=== PATIENT | male | born 1945 | race Caucasian/White ===

== ENCOUNTER 2016-07-29 13:02 | Inpatient (IN) | payer BC, OTHER ==
[~2016-07-29] VITALS: Ht 180.3 cm; Wt 92.8 kg
[2016-07-29] MEDS ORDERED: RANI150T3 PO (13:24)
--- NOTE | 2016-07-29 14:07 | DIAGNOSTIC IMAGING REPORT ---
RIGHT RIBS UNILATERAL WITH PA CHEST CLINICAL HISTORY: Right rib pain following fall. COMPARISON STUDY: Chest radiograph August 15, 2012. FINDINGS: There is a moderate-sized right pneumothorax with superior pleural separation of 5.2 cm. There are acute nondisplaced fractures of the lateral right sixth through ninth ribs. Linear right lower lung opacity favors atelectasis. Cardiomediastinal silhouette is stable. There is no evidence of pulmonary edema. IMPRESSION: 1. Moderate right pneumothorax. Findings discussed with Bianka Newsome at time of dictation. 2. Acute nondisplaced fractures of the right sixth through ninth ribs. Electronically signed by: Lewis Guillen M.D. 07/29/2016 2:05 PM Dictated Date/Time: 07/29/2016 1:59 PM
--- NOTE | 2016-07-29 14:27 | EMERGENCY ROOM VISIT NOTE ---
ED Visit Note First contact with patient: 13:17 CHIEF COMPLAINT: Right rib injury this morning HISTORY OF PRESENT ILLNESS: Patient is an otherwise healthy 71-year-old white male who presents emergency Department complaining of eye his for evaluation of right-sided rib pain after a fall that occurred roughly 5 hours ago. He slipped on ice and fell, landing on his right side with his right arm underneath him. He felt pain immediately in the right ribs laterally, wrapping around to the back slightly. He states that he is having a hard time breathing. He has rib pain with any attempts at movement including position changes or twisting. He has pain with trying to take a deep breath or cough. He denies hemoptysis. He did not strike his head or lose consciousness. He denies any other injuries. No anterior chest pain or abdominal pain. No back or neck pain. He took Aleve earlier this morning. He rates his pain a 5/10. REVIEW OF SYSTEMS: Review of systems as per HPI. All other systems reviewed were negative. 10 systems reviewed. PMH: Electronic medical records are reviewed and summarized as above/below. See Problem List. SOCIAL HISTORY: Patient lives at home with his . Retired. Nonsmoker.. PHYSICAL EXAM: Vital Signs: Reviewed Nurse's notes. GENERAL: Patient is an uncomfortable appearing 71-year-old white male who is awake and alert and sitting upright on the gurney in mild distress due to his right rib pain. Neck: The neck is supple and there is no pain to palpation over the posterior cervical spine and no obvious step-offs or deformities. There is no JVD or tracheal deviation. Chest: There are no signs of deformities, contusions or abrasions to the anterior chest wall. There is no obvious crepitus or paradoxical chest rise. He has discomfort to palpation in the mid right ribs laterally. No obvious flail segment or fracture crepitus. Skin is intact without ecchymosis or abrasions. Heart: Regular rate, and regular rhythm. There is a normal S1 and S2 with no murmurs, clicks, or gallops appreciated. Lungs: Breath sounds equal and clear to auscultation without wheezes, rales, or rhonchi heard. Abdomen: Soft, completely nontender, nondistended, with good bowel sounds. There is no sign of trauma such as contusions, abrasions or penetrations. There are no palpable pulsatile masses or hepatosplenomegaly. There is no guarding, rigidity, or rebound noted. Back: The entire thoracic, lumbar, and sacral spine were palpated. No discomfort over the thoracic spine and lumbar spine. There are no obvious step- offs or deformities noted. There are no obvious signs of trauma such as contusions abrasions penetrations noted to the back. EMERGENCY DEPARTMENT COURSE: The patient was seen and evaluated as above. He declined medication for discomfort. X-rays of the ribs with PA chest were obtained. Findings were telephoned directly to me in the emergency department by Dr. Guillen, the interpreting radiologist due to the acute findings. Patient had a moderate right-sided pneumothorax with pleural separation measuring 5.2 cm. They were acute nondisplaced fractures of the right sixth through ninth ribs. X-ray findings were immediately reviewed with Dr. Durham. Patient was moved from room D4 to A1. Thoracic surgery (Dr. Harman and John Cosme, FISH) was consulted for chest tube placement and will manage the patient in the hospital. Please refer to their admission H&P and orders for further information. The patient otherwise remained hemodynamically stable while in the emergency department with chest tube placement. He was comfortable and declined any medication. RIGHT RIBS UNILATERAL WITH PA CHEST CLINICAL HISTORY: Right rib pain following fall. COMPARISON STUDY: Chest radiograph August 15, 2012. FINDINGS: There is a moderate-sized right pneumothorax with superior pleural separation of 5.2 cm. There are acute nondisplaced fractures of the lateral right sixth through ninth ribs. Linear right lower lung opacity favors atelectasis. Cardiomediastinal silhouette is stable. There is no evidence of pulmonary edema. IMPRESSION: 1. Moderate right pneumothorax. Findings discussed with Bianka Newsome at time of dictation. 2. Acute nondisplaced fractures of the right sixth through ninth ribs. Differential diagnoses entertained include rib fracture, rib contusion, pneumothorax, pulmonary contusion, retroperitoneal injury, hepatic trauma, among others. Problem List Medical Problems: (1) Esophageal Reflux Status: Chronic Surgical Problems: (1) History of herniorrhaphy Status: Resolved (2) History of shoulder surgery Status: Resolved Current/Historical Medications Scheduled PRN Ranitidine Hcl (Zantac), 150 MG PO DAILY PRN for acid reflux Allergies Coded Allergies: No Known Allergies (Verified , 3/17/17) Vital Signs Date Time Temp Pulse Resp B/P Pulse Ox O2 Delivery O2 Flow Rate FiO2 07/29/16 15:52 78 22 160/98 97 Nasal Cannula 2.0 07/29/16 15:48 94 Nasal Cannula 2.0 07/29/16 15:12 66 16 168/96 96 07/29/16 14:31 66 07/29/16 14:23 67 18 173/99 96 Room Air 07/29/16 13:10 36.5 69 18 138/81 96 Room Air Laboratory Results 07/29/16 14:25 Red Blood Count 4.84, Mean Corpuscular Volume 84.3, Mean Corpuscular Hemoglobin 29.1, Mean Corpuscular Hemoglobin Concent 34.6, Mean Platelet Volume 9.5, Neutrophils (%) (Auto) 87.8, Lymphocytes (%) (Auto) 5.9, Monocytes (%) (Auto) 5.5, Eosinophils (%) (Auto) 0.3, Basophils (%) (Auto) 0.1, Neutrophils # (Auto) 10.78, Lymphocytes # (Auto) 0.73, Monocytes # (Auto) 0.68, Eosinophils # (Auto) 0.04, Basophils # (Auto) 0.01 07/29/16 14:25 Test 07/29/16 14:25 07/29/16 14:37 White Blood Count 12.29 K/uL (4.8-10.8) Red Blood Count 4.84 M/uL (4.7-6.1) Hemoglobin 14.1 g/dL (14.0-18.0) Hematocrit 40.8 % (42-52) Mean Corpuscular Volume 84.3 fL (80-100) Mean Corpuscular Hemoglobin 29.1 pg (25-34) Mean Corpuscular Hemoglobin Concent 34.6 g/dl (32-36) Platelet Count 181 K/uL (130-400) Mean Platelet Volume 9.5 fL (7.4-10.4) Neutrophils (%) (Auto) 87.8 % Lymphocytes (%) (Auto) 5.9 % Monocytes (%) (Auto) 5.5 % Eosinophils (%) (Auto) 0.3 % Basophils (%) (Auto) 0.1 % Neutrophils # (Auto) 10.78 K/uL (1.4-6.5) Lymphocytes # (Auto) 0.73 K/uL (1.2-3.4) Monocytes # (Auto) 0.68 K/uL (0.11-0.59) Eosinophils # (Auto) 0.04 K/uL (0-0.5) Basophils # (Auto) 0.01 K/uL (0-0.2) RDW Standard Deviation 40.8 fL (36.4-46.3) RDW Coefficient of Variation 13.5 % (11.5-14.5) Immature Granulocyte % (Auto) 0.4 % Immature Granulocyte # (Auto) 0.05 K/uL (0.00-0.02) Prothrombin Time 10.6 SECONDS (9.0-12.0) Prothromb Time International Ratio 1.0 (0.9-1.1) Activated Partial Thromboplast Time 23.8 SECONDS (21.0-31.0) Partial Thromboplastin Ratio 0.9 Est Creatinine Clear Calc Drug Dose 64.8 ml/min Estimated GFR () 69.6 Estimated GFR (Non- 60.1 BUN/Creatinine Ratio 19.0 (10-20) Calcium Level 9.3 mg/dl (8.5-10.1) Total Bilirubin 0.8 mg/dl (0.2-1) Aspartate Amino Transf (AST/SGOT) 27 U/L (15-37) Alanine Aminotransferase (ALT/SGPT) 39 U/L (12-78) Alkaline Phosphatase 79 U/L (45-117) Total Protein 7.0 gm/dl (6.4-8.2) Albumin 3.9 gm/dl (3.4-5.0) Globulin 3.1 gm/dl (2.5-4.0) Albumin/Globulin Ratio 1.3 (0.9-2) Bedside Hemoglobin 13.9 g/dl (14.0-18.0) Bedside Hematocrit 41 % (42-52) Bedside Sodium 140 mEq/L (135-144) Bedside Potassium 4.0 mEq/L (3.3-5.0) Bedside Chloride 103 mEq/L (101-112) Bedside Total CO2 24 mEq/l (24-31) Anion Gap 17.0 mmol/L (16-25) Bedside Blood Urea Nitrogen 25 mg/dl (7-18) Bedside Creatinine 1.1 mg/dl (0.6-1.3) Bedside Glucose (other) 133 mg/dl (70-99) Bedside Ionized Calcium (Lupe) 1.20 mmol/l (1.12-1.32) Departure Information Impression Primary Impression: Pneumothorax, right Additional Impression: Multiple fractures of ribs of right side Dispostion Being Evaluated By Surgeon Referrals Antonio Charles M.D. (PCP) Patient Instructions [facility] Problem Qualifiers
[2016-07-29 14:50] LABS: BASO % 0.1 %; BASO ABS # 0.01 K/uL (0-0.2); COMPLETE YES; EOS % 0.3 %; HEMATOCRIT 40.8 % (42-52); IG% 0.4 %; LYMPH % 5.9 %; LYMPH ABS # 0.73 K/uL (1.2-3.4); MEAN CELL VOLUME 84.3 fL (80-100); MEAN CORPUSCULAR HEMOGLOBIN 29.1 pg (25-34); MEAN CORPUSCULAR HGB CONC 34.6 g/dl (32-36); MEAN PLATELET VOLUME 9.5 fL (7.4-10.4); MONO % 5.5 %; NEUT % 87.8 %; PLATELET COUNT 181 K/uL (130-400); RED BLOOD COUNT 4.84 M/uL (4.7-6.1); WHITE BLOOD COUNT 12.29 K/uL (4.8-10.8)
[2016-07-29 14:50] LABS: ISTAT CREATININE 1.1 mg/dl (0.6-1.3); ISTAT HEMOGLOBIN 13.9 g/dl (14.0-18.0); ISTAT IONIZED CALCIUM 1.2 mmol/l (1.12-1.32)
[2016-07-29 14:54] LABS: CALCIUM 9.3 mg/dl (8.5-10.1); CREATININE 1.2 mg/dl (0.60-1.40); PARTIAL THROMBOPLASTIN RATIO 0.9; PROTHROMBIN TIME (PATIENT) 10.6 SECONDS (9.0-12.0)
[2016-07-29 14:57] LABS: ALB/GLOB RATIO 1.3 (0.9-2)
--- NOTE | 2016-07-29 15:14 | History and Physical ---
History & Physical Date of Service Jul 29, 2016. History & Physical H & P Dictated #[id number]
[2016-07-29] MEDS ORDERED: SOD PHOSPHATE/SOD BIPHOSPHATE ENEMA 132 ML BTL PR PRN (15:15)
[2016-07-29] MEDS ORDERED: MoRPHine SULFATE 2 MG/ML CARP IV PRN (15:15)
[2016-07-29] MEDS ORDERED: POLYETHYLENE (MIRALAX) 17 GM PACK PO PRN (15:15)
[2016-07-29] MEDS ORDERED: ONDANSETRON INJ 2 MG/ML 2 ML VIAL IV PRN (15:15)
[2016-07-29] MEDS ORDERED: BISACODYL 10 MG SUPP PR PRN (15:15)
[2016-07-29] MEDS ORDERED: OXYCODONE HCL IR 5 MG TAB (IMMEDIATE RELEASE) PO PRN (15:15)
--- NOTE | 2016-07-29 15:31 | HISTORY & PHYSICAL EXAMINATION ---
DATE OF ADMISSION: 07/29/2016 CHIEF COMPLAINT: Right-sided rib pain. HISTORY OF PRESENT ILLNESS: This is a very healthy 71-year-old male with no significant past medical history. The patient says that he was walking down his driveway on a flat surface when he nearly fell on the ice and slipped. He landed on his right side and since that time, he has had some right-sided rib pain in the posterior lateral region. He also notes some pain with deep inspirations. The patient specifically notes that he merely slipped on the ice. He did not have any lightheadedness, chest pain or shortness of breath precipitating his fall. He did not hit his head and he denies any loss of consciousness. I questioned the patient on a litany of other symptoms and he did fall, which was mechanical in nature. There are no head injuries or loss of consciousness. He denies any blurred vision. He denies any tinnitus. He denies any epistaxis. He denies any sore throat or neck pain. He denies chest pain, shortness of breath or palpitations. He does note some pain with deep inspirations, however. He denies any abdominal pain, nausea, vomiting, diarrhea or dysuria. He denies any recent weight loss. He denies any fevers, shakes or chills. He denies any change in bowel or bladder habits. He denies history of stroke, seizure, migraine headache, anxiety or depression. I also questioned the patient on his activities of daily living and he says that he can walk up at least 4 flights of steps without chest pain or shortness of breath. In the Emergency Department, the patient did have rib x-rays as well as a chest x-ray, which showed that the patient had a moderate-sized right-sided pneumothorax. He had some nondisplaced rib fractures of the right ribs #6 through #9. We have now been asked to participate in the patient's care due to his pneumothorax. PAST MEDICAL HISTORY: GERD. PAST SURGICAL HISTORY: Includes bilateral shoulder surgeries, he has had 3 surgeries on each shoulder. ALLERGIES: None. OUTPATIENT MEDICATIONS: Include 1 Zantac daily. SOCIAL HISTORY: He is a lifetime nonsmoker. FAMILY HISTORY: There is no family history of cancer. REVIEW OF SYSTEMS: As noted above. PHYSICAL EXAMINATION: VITAL SIGNS: The patient is afebrile, temperature 36.5, pulse 66 and regular, respirations are 18 and unlabored, blood pressure 173/99, and pulse ox 96% on room air. SKIN: Warm with good turgor. GENERAL: He is alert. He is oriented x3. He is in no distress. HEENT: Head is atraumatic and normocephalic. EYES: Pupils equal, round and reactive to light and accommodation. Extraocular motions are intact. EARS: Auditory acuity is grossly intact. NOSE: Nasal patency was intact. Sinuses are nontender. There is no evidence of Coyle's sign or raccoon eyes. NECK: Supple without tracheal shift or stridor. He had no tenderness to palpation of his cervical spine. CARDIOVASCULAR: Regular rate and rhythm. LUNGS: Revealed decreased breath sounds on the right side. His chest wall was palpated and he did not have any pain on the left side, but he did have pain over the right posterior lateral chest wall consistent with his existing rib fractures. ABDOMEN: Soft, nontender, and nondistended. There is no pain with palpation. EXTREMITIES: Revealed no cyanosis, clubbing, or edema. PELVIS: Noted to be grossly stable by exam and he did not have any pain with palpation of his hips. Radial and DP pulses were palpable bilaterally. NEUROLOGIC: Revealed cranial nerves II through XII are grossly intact. There is no evidence of focal deficits. He can move all 4 extremities and follow simple commands. DIAGNOSTIC DATA: As noted above. IMPRESSION: A 71-year-old male with rib fractures and pneumothorax. PLAN: The patient's injuries noted above are merely secondary to a mechanical fall. Concerning the patient's pneumothorax, I feel that this is likely secondary to his rib fractures and his fall. We will get a repeat CXR to determine if a chest tube is needed. Concerning the patient's rib fractures, analgesics will be prescribed along with incentive spirometry. The patient will be encouraged to ambulate. I did inform him that limited mobility and limited breathing will predispose him to pneumonia and he expressed understanding of this as well. We will initiate anticoagulation with Lovenox tomorrow morning. The patient will be a level 1 full code. MTDD
--- NOTE | 2016-07-29 16:02 | DIAGNOSTIC IMAGING REPORT ---
SINGLE VIEW CHEST CLINICAL HISTORY: Pneumothorax. FINDINGS: An AP, portable, upright chest radiograph is compared to study dated performed the same day 07/29/2016 and study dated 08/15/2012. The examination is degraded by portable technique and patient rotation. The heart is enlarged and there is atherosclerotic calcification of the thoracic aorta. The pulmonary vasculature is noncongested. The trachea is midline. There is increasing right infrahilar airspace opacification. No large pleural effusion is identified. A moderate right apical pneumothorax has not significant change from previous. There is approximately 4.5 cm apical pleural separation no left-sided pneumothorax is seen. The skeletal structures are osteopenic. Right-sided rib fractures are again noted. Minimal subcutaneous emphysema is noted along the right lateral chest wall. IMPRESSION: 1. No significant change in a moderate right apical pneumothorax as compared to today's earlier examination. Any differences in measured size are likely technical. 2. Increasing right infrahilar airspace opacities. This could present atelectasis or possibly an aspiration event. Clinical correlation will be required. 3. Cardiac enlargement without radiographic evidence of congestive failure. 4. No large pleural effusion is seen. 5. Right-sided rib fractures are noted. Electronically signed by: Elijah Avila M.D. 07/29/2016 4:00 PM Dictated Date/Time: 07/29/2016 3:58 PM
--- NOTE | 2016-07-29 16:51 | HISTORY & PHYSICAL EXAMINATION ---
DATE OF ADMISSION: 07/29/2016 HISTORY OF PRESENT ILLNESS: Mr. Felder was seen here in the Emergency Room about 3:30 p.m. He had fallen about 9:00 this morning on the ice and hit his right chest. 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 He had a significant pneumothorax. Really not short of breath and oxygenating well on room air. He had no other injuries and is actually very healthy except for some gastroesophageal reflux disease. He is a nonsmoker. Upon evaluating the patient, he is quite comfortable. We repeated his chest x-ray 2 hours after his initial x-ray, pneumothorax actually seemed a bit smaller. We are going to put him on oxygen and admit him and repeat a chest x-ray at 9:00 tonight. We will also repeat one in the morning. Should this enlarge we will of course put a chest tube in, however, my feeling is this will probably resolve with conservative management. I had a long talk with the patient and his . He is stable.
[2016-07-29 17:00] VITALS: BP 168/91; PULSE 64; TEMP 36.7; O2SAT 99; Ht 180.3 cm; Wt 92.8 kg
[2016-07-29 17:30] VITALS: BP 124/80
[2016-07-29] MEDS: ACETAMINOPHEN 325 MG TAB PO SCH (18:52)
[2016-07-29] MEDS: KETOROLAC TROMETHAMINE 15 MG/ML VIAL IV. SCH (18:53)
[2016-07-29] MEDS: DOCUSATE SODIUM 100 MG CAP PO SCH (20:23)
--- NOTE | 2016-07-29 21:12 | DIAGNOSTIC IMAGING REPORT ---
CHEST ONE VIEW PORTABLE CLINICAL HISTORY: pneumothorax dyspnea COMPARISON STUDY: 07/29/2006 at 4:04 PM FINDINGS: Increased volume of a right sided pneumothorax. Maximum apical pleural separation is 5.5 cm. Maximum basilar pleural separation is 2.8 cm. Persistent atelectatic change medial right base. IMPRESSION: Moderate increase in volume of a right-sided pneumothorax estimated currently at 50% of hemithoracic volume Electronically signed by: Surendra Lerma M.D. 07/29/2016 9:11 PM Dictated Date/Time: 07/29/2016 9:10 PM
[2016-07-29 23:08] VITALS: BP 158/94; PULSE 67; TEMP 36.9; O2SAT 96
[2016-07-30] MEDS: ACETAMINOPHEN 325 MG TAB PO SCH ×5 (00:34→23:31)
[2016-07-30 03:10] VITALS: BP 150/95; PULSE 75
[2016-07-30] MEDS: KETOROLAC TROMETHAMINE 15 MG/ML VIAL IV. SCH ×3 (03:12→17:49)
[2016-07-30 07:07] VITALS: BP 132/77; PULSE 67; TEMP 36.6; O2SAT 94
--- NOTE | 2016-07-30 07:17 | DIAGNOSTIC IMAGING REPORT ---
CHEST ONE VIEW PORTABLE CLINICAL HISTORY: pneumothorax COMPARISON STUDY: 07/29/2016 FINDINGS: Right-sided pneumothorax is again noted. It is perhaps slightly diminished in size. It remains approximately 50% of volume of the right hemithorax. IMPRESSION: Minimal decrease in volume of a right-sided pneumothorax. Nevertheless, it remains significant at approximately 50% of right hemithoracic volume Electronically signed by: Surendra Lerma M.D. 07/30/2016 7:15 AM Dictated Date/Time: 07/30/2016 7:14 AM
[2016-07-30] MEDS: DOCUSATE SODIUM 100 MG CAP PO SCH ×2 (08:47→21:52)
[2016-07-30] MEDS: ENOXAPARIN 40 MG/0.4 ML SYR SQ SCH (08:48)
--- NOTE | 2016-07-30 09:31 | DIAGNOSTIC IMAGING REPORT ---
CHEST ONE VIEW PORTABLE CLINICAL HISTORY: s/p R pleural catheter tube position COMPARISON STUDY: Prior examination same date FINDINGS: Interval placement of a right basilar chest tube. Near complete and/or complete reinflation right lung. IMPRESSION: Complete or near complete reinflation right lung. Interval placement of a right sided small caliber chest tube. Electronically signed by: Surendra Lerma M.D. 07/30/2016 9:30 AM Dictated Date/Time: 07/30/2016 9:29 AM
--- NOTE | 2016-07-30 09:38 | SURGERY PROGRESS NOTE ---
DATE: 07/30/2016 DATE: 07/30/2016. PROCEDURE: Insertion of right pleural catheter for expanding pneumothorax. SURGEON: Dr. Da Silva. ANESTHESIA: Local. SPECIFICS OF THE PROCEDURE: Mr. Felder is a 71-year-old really healthy male who presents after a fall and some nondisplaced rib fractures resulting in pneumothorax on the right. It appeared to be fairly small several hours after surgery and I elected to watch him on oxygen therapy and overnight. Repeated an x-ray this morning and the pneumothorax has gotten larger, now over 50%. He really has no symptoms except for some mild discomfort in her right chest. I am going to insert a pleural catheter today after a long discussion. I explained we could put a traditional large bore chest tube, but I think this will help him. We will place his chest tube and this pleural catheter and check a chest x-ray.
--- NOTE | 2016-07-30 09:41 | OPERATIVE REPORT ---
DATE OF OPERATION: 07/30/2016 PROCEDURE: Insertion of right pleural catheter. SURGEON: Dr. Da Silav. SPECIFICS OF PROCEDURE: This 16 Pashto catheter was placed in the right chest after a long discussion. I did it anteriorly. After appropriate consent had been signed and timeout had been taken I prepped and draped his anterior chest was anesthetized him with 25 gauge needle 1% Xylocaine. The larger needle with the Pneumocath in place was then placed through a small stab wound I had made with an 11 blade. I went above the rib and when I got air back I slid the catheter into place. I then removed the inner needle and attached it to a Heimlich valve. We had a sizeable leak initially when he coughed. I sutured in place with 2-0 silk suture. He tolerated it well and actually felt a bit better afterwards. A chest x-ray is pending at this time. I attest to the content of the Intraoperative Record and any orders documented therein. Any exceptio ns are noted below.
[2016-07-30 10:32] VITALS: O2SAT 95
[2016-07-30] MEDS ORDERED: NURSING VERBAL MED ORDER ONE (12:45)
[2016-07-30] MEDS ORDERED: RANITIDINE HCL 150 MG TAB PO PRN (13:00)
[2016-07-30 15:45] VITALS: BP 172/95; PULSE 72; TEMP 36.8; O2SAT 94
[2016-07-30 16:54] VITALS: BP 151/90; PULSE 64
[2016-07-30 22:54] VITALS: BP 156/90; PULSE 67; TEMP 36.9; O2SAT 96
[2016-07-31] MEDS: KETOROLAC TROMETHAMINE 15 MG/ML VIAL IV. SCH ×2 (02:37→09:59)
[2016-07-31] MEDS: ACETAMINOPHEN 325 MG TAB PO SCH (05:32)
[2016-07-31 05:40] VITALS: O2SAT 95
--- NOTE | 2016-07-31 07:02 | DIAGNOSTIC IMAGING REPORT ---
CHEST ONE VIEW PORTABLE CLINICAL HISTORY: f/u pneumothorax pneumothorax COMPARISON STUDY: 07/30/2016 FINDINGS: No significant residual pneumothorax. Small caliber right-sided chest tube seen in a peripheral location of the upper lung. Left lung is clear. IMPRESSION: No significant residual pneumothorax. Small caliber right chest tube is noted Electronically signed by: Surendra Lerma M.D. 07/31/2016 7:01 AM Dictated Date/Time: 07/31/2016 7:00 AM
[2016-07-31 07:24] VITALS: BP 153/95; PULSE 62; TEMP 36.6; O2SAT 95
[2016-07-31] MEDS: DOCUSATE SODIUM 100 MG CAP PO SCH (08:27)
[2016-07-31] MEDS: ENOXAPARIN 40 MG/0.4 ML SYR SQ SCH (08:28)
[2016-07-31 11:02] VITALS: BP 153/95; PULSE 62; TEMP 36.6; O2SAT 95
--- NOTE | 2016-07-31 11:03 | Discharge Instructions ---
Discharge Instructions Date of Service Jul 31, 2016. Admission Reason for Admission: Pneumothorax Discharge Discharge Diagnosis / Problem: Pneumothorax Discharge Goals Goal(s): Improve function (walk and breathe deeply.) Activity Recommendations Activity Limitations: resume your previous activity . Current Hospital Diet Patient's current hospital diet: Regular Diet Discharge Diet Recommended Diet: Regular Diet Pending Studies Studies pending at discharge: no Medical Emergencies . Who to Call and When: Medical Emergencies: If at any time you feel your situation is an emergency, please call 911 immediately. . Non-Emergent Contact Non-Emergency issues call your: Primary Care Provider . . "Provider Documentation" section prepared by Konrad Da Silva. VTE Core Measure Inpt VTE Proph given/why not?: Enoxaparin (Lovenox)SQ
--- NOTE | 2016-07-31 11:04 | DIAGNOSTIC IMAGING REPORT ---
CHEST ONE VIEW PORTABLE CLINICAL HISTORY: s/p chest tube removal COMPARISON STUDY: 07/30/2016 6:50 AM FINDINGS: No evidence pneumothorax status post right-sided chest tube removal. Minimal bibasilar atelectasis. IMPRESSION: No evidence pneumothorax status post chest tube removal Electronically signed by: Surendra Lerma M.D. 07/31/2016 11:03 AM Dictated Date/Time: 07/31/2016 11:03 AM
--- NOTE | 2016-07-31 13:00 | DISCHARGE SUMMARY ---
DISCHARGE DIAGNOSES: 1. Blunt right chest trauma with pneumothorax and rib fractures. 2. Gastroesophageal reflux disease. 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 He fell on the ice on 07/29/2016 in the morning and suffered some nondisplaced rib fractures, was found to have a pneumothorax. I saw him in the Emergency Room on 07/29/2016 and admitted him on oxygen as it appeared to me the pneumothorax was not going to be large enough to require a chest tube. On the morning of 07/30/2016, it could be seen that the pneumothorax was much larger. For this reason, I placed a small 16-Czech pneumo cath into the right anterior chest about the fourth interspace. He had significant air leak initially but then it stopped. I attached a Heimlich valve to it. He had no pneumothorax on his first chest x-ray after the tube had been placed. The following morning, today on 07/31/2016 his x-ray showed no evidence of pneumothorax and he had no air leak. I removed his chest tube at the bedside and then placed an occlusive dressing with an antimicrobial covering. His chest x-ray after pulling the tube showed no evidence of pneumothorax. The patient was discharged home. I gave him my cell phone number and told to call me should any problems arise, but I do not think they will. I will see him later on this week with a chest x-ray.
== END 2016-07-31 11:19 | disposition home or self-care (01) | DRG 200 ==
LOC: ENRESERVDT → ENRESERVTM → C.EDB 13:03 → C.MSW 15:56
PROVIDERS: ADMIT Surgery; ATTEND Surgery
PROC: 0W9930Z Drainage of Right Pleural Cavity with Drainage Device, Percutaneous Approach (ICD-10-PCS; principal; 2016-07-30)
DX: S27.0XXA Traumatic pneumothorax, initial encounter (principal); S22.41XA Multiple fractures of ribs, right side, initial encounter for closed fracture; W00.0XXA Fall on same level due to ice and snow, initial encounter; Y92.093 Driveway of other non-institutional residence as the place of occurrence of the external cause; K21.9 Gastro-esophageal reflux disease without esophagitis; Z79.899 Other long term (current) drug therapy

== ENCOUNTER → 2016-08-05 | Outpatient (CLI) | payer BC ==
[~2016-08-05] MED LIST: RANI150T3 PO
--- NOTE | 2016-08-05 10:19 | DIAGNOSTIC IMAGING REPORT ---
CHEST 2 VIEWS ROUTINE CLINICAL HISTORY: Rib fracture pneumothorax. Follow-up examination. COMPARISON STUDY: 07/31/2016 FINDINGS: The cardiac and mediastinal contours are normal. There is no evidence of focal pulmonary consolidation. There is no evidence of failure. No pleural effusions are visualized.[ Degenerative changes are present within the shoulders. No pneumothorax is visualized. There is trace subcutaneous emphysema on the right. There is a right eighth rib fracture. IMPRESSION: 1. Decreasing subcutaneous emphysema in the right 2. Right eighth rib fracture 3. No evidence of pneumothorax Electronically signed by: Nicola Salas M.D. 08/05/2016 10:17 AM Dictated Date/Time: 08/05/2016 10:16 AM
== END | disposition home or self-care (01) ==
LOC: C.RAD1850 10:04
PROVIDERS: ATTEND Surgery
DX: J93.9 Pneumothorax, unspecified (principal); S22.31XA Fracture of one rib, right side, initial encounter for closed fracture; X58.XXXA Exposure to other specified factors, initial encounter

== ENCOUNTER → 2017-01-19 | Outpatient (CLI) | payer BC ==
[2017-01-19 12:15] LABS: BASO % 0.6 %; BASO ABS # 0.03 K/uL (0-0.2); COMPLETE YES; EOS % 6.3 %; IG% 0.2 %; LYMPH % 25.5 %; LYMPH ABS # 1.18 K/uL (1.2-3.4); MEAN CELL VOLUME 87.4 fL (80-100); MEAN CORPUSCULAR HEMOGLOBIN 29.7 pg (25-34); MEAN PLATELET VOLUME 9.6 fL (7.4-10.4); MONO % 10.2 %; NEUT % 57.2 %; PLATELET COUNT 214 K/uL (130-400); RED BLOOD COUNT 4.92 M/uL (4.7-6.1); WHITE BLOOD COUNT 4.62 K/uL (4.8-10.8)
[2017-01-19 12:22] LABS: URINE APPEARANCE CLEAR (CLEAR); URINE BILIRUBIN NEG (NEG); URINE COLOR YELLOW; URINE NITRITE NEG (NEG); URINE SPECIFIC GRAVITY 1.024 (1.000-1.030); UROBILINOGEN NEG (NEG)
[2017-01-19 12:38] LABS: MANUAL MICROSCOPIC REQUIRED? NO; REVIEW REQ? NO
[2017-01-19 13:57] LABS: AST/SGOT 21 U/L (15-37); BLOOD UREA NITROGEN 22 mg/dl (7-18); BUN/CREATININE RATIO 18.3 (10-20); CALCIUM 9.3 mg/dl (8.5-10.1); CARBON DIOXIDE 27 mmol/L (21-32); CHLORIDE 106 mmol/L (98-107); CHOLESTEROL 207 mg/dl (0-200); GLUCOSE 97 mg/dl (70-99); POTASSIUM 3.9 mmol/L (3.5-5.1); SODIUM 138 mmol/L (136-145)
[2017-01-19 14:01] LABS: ALKALINE PHOSPHATASE 93 U/L (45-117); ALT/SGPT 32 U/L (12-78); CHOLESTEROL/HDL RATIO 4.3; HDL CHOLESTEROL 48 mg/dl; LDL CHOLESTEROL CALCULATED 127 mg/dl; PROSTATE SPECIFIC ANTIGEN 0.404 ng/ml (0.000-4.000); TRIGLYCERIDES 160 mg/dl (0-150); VERY LOW DENSITY LIPOPROT CALC 32 mg/dl
--- NOTE | 2017-01-27 12:42 | CODING QUERY MEDICAL NECESSITY ---
SUPPORTING DIAGNOSIS NEEDED Dr. Charles, A supporting diagnosis is required for the test/procedure performed on this patient in order for us to be reimbursed by the patient's insurance. Please provide a supporting diagnosis for the following test/procedure listed below next to the test name along with your signature. *If there is no additional diagnosis for this patient that would support the following test/procedure please document that below next to the test/procedure. Test(s)/Procedure(s) that require a supporting diagnosis: * [id number] PSA DIAGNOSIS: DATE OF SERVICE: 01/19/17 Provider Signature: Date: Thank you Denzel Azar [facility] Information Management Once completed, please kindly fax back to [phone] For questions please call [phone]
== END | disposition home or self-care (01) ==
LOC: C.LAB1850 10:48
PROVIDERS: ATTEND Internal Medicine Pulmonary Disease
DX: K21.9 Gastro-esophageal reflux disease without esophagitis (principal); Z12.5 Encounter for screening for malignant neoplasm of prostate

== ENCOUNTER → 2017-04-18 | Outpatient (CLI) | payer BC ==
[2017-04-18 11:33] LABS: LYME DISEASE AB IGG NEG (NEG); LYME DISEASE AB IGM NEG (NEG)
== END | disposition home or self-care (01) ==
LOC: C.LAB1850 09:18
PROVIDERS: ATTEND Physician Assistant Medical
DX: T14.8XXA Other injury of unspecified body region, initial encounter (principal); W57.XXXA Bitten or stung by nonvenomous insect and other nonvenomous arthropods, initial encounter